=== PATIENT | female | born 1980 | race Caucasian/White ===

== ENCOUNTER 2016-12-21 14:55 | Emergency (ER) | payer OTHER ==
[~2016-12-21] VITALS: Ht 167.6 cm; Wt 97.0 kg
[~2016-12-21 14:55] MED LIST: AMOXICILLI250 MG/5 M; AMOXICILLI400 MG/5 M; AMOXICILLIN500 MG PO; AUGMENTIN500 MG PO; AZITHROMYCIN250 MG; BENADRYL25 MG PO; CHILDREN'S100 MG/59; CIPRO500 MG PO; CLARITIN10 MG PO; EPIPEN ADU0.3 MG/0.3 IM; FLAGYL500 MG; GIANVI 3 MG-0.1 EACH; HYDROCODONE-HO473 ML; MACRODANTIN100 MG PO; MOTRIN800 MG PO; NAPROSYN500 MG PO; NOHOMEMEDS; NORCO 5/3251 TABLET PO; NYQUIL D COLD295 ML; PREDNISONE20 MG PO; PROMETHAZINE-D120 ML; PYRIDIUM200 MG PO; TRAMADOL HCL50 MG PO; VICODIN 5-3001 EACH PO
[2016-12-21 15:38] LABS: ADD MIUA? YES; BILIRUBIN NEGATIVE; BLOOD NEGATIVE; COLOR AMBER ((YELLOW)); GLUCOSE (STRIP) NEGATIVE; KETONES NEGATIVE; LEUKOCYTES TRACE; NITRITE NEGATIVE; PROTEIN (STRIP) 30; SPECIFIC GRAVITY 1.025 (1.000-1.030); UROBILINOGEN 0.2 MG/DL (0.2-1.0)
[2016-12-21 15:45] LABS: HEMATOCRIT 43.4 % (36.0-46.0); MCH 30.8 PG (29.0-34.0); MCHC 33.6 G/DL (30.0-36.0); MCV 91.6 FL (83-99); MEAN PLAT.VOLUME 9.6 uM^3 (9.5-12.4); PLATELET COUNT 362 K/uL (156-360); RBC DIS.WIDTH-CV 12.8 % (11.8-14.6); RBC DIS.WIDTH-SD 43.1 % (39-53); RED BLOOD COUNT 4.74 M/uL (3.80-5.20)
[2016-12-21 15:56] LABS: CHLORIDE 104 mEq/L (99-109); POTASSIUM 4.1 mEq/L (3.7-5.4); SODIUM 139 mEq/L (136-147)
[2016-12-21 15:56] LABS: BACTERIA 1+ /HPF; CASTS NONE SEEN /LPF; CRYSTALS NONE SEEN; EPITHELIAL CELLS 3+ /HPF; MUCUS 1+ /LPF; RED BLOOD CELLS RARE /HPF (0-5); UCUL ADDED? NO; WHITE BLOOD CELLS 0-5 /HPF (0-5)
[2016-12-21 15:58] LABS: GLUCOSE 80 mg/dL (70-99)
[2016-12-21 15:59] LABS: ANION GAP 10 MEQ/L (2-14)
[2016-12-21 16:00] LABS: TOTAL BILIRUBIN 0.6 mg/dL (0.0-1.0)
[2016-12-21 16:01] LABS: ALKALINE PHOSPHATASE 96 IU/L (3-129)
[2016-12-21 16:02] LABS: GFR ESTIMATE (CALCULATED) > 59 mL/min/
[2016-12-21 16:03] LABS: UREA NITROGEN (BUN) 13 mg/dL (9-23)
[2016-12-21 16:10] LABS: QUANTITATIVE HCG < 4.0 MIU/ML
[2016-12-21] MEDS ORDERED: METRONIDAZOLE500 MG PO (17:37)
[2016-12-21] MEDS ORDERED: CIPROFLOXACIN500 M1 PO (17:37)
[2016-12-21] MEDS ORDERED: ZOFRAN4 MG PO (19:09)
[2016-12-21] MEDS ORDERED: PYRIDIUM200 MG PO (19:18)
[2016-12-21] MEDS ORDERED: KEFLEX500 MG PO (19:18)
[2016-12-21] MEDS ORDERED: ULTRAM50 MG PO (19:22)
[2016-12-21 19:41] VITALS: BP 103/64
== END 2016-12-21 19:42 | disposition home or self-care (01) ==
LOC: EME 14:55
DX: F17.200 Nicotine dependence, unspecified, uncomplicated (principal); N39.0 Urinary tract infection, site not specified; R11.2 Nausea with vomiting, unspecified
CPT/HCPCS: 74176; 80053; 81003; 84702; 85027; 99281; 99284; J0696